=== PATIENT | female | born 1990 | race Caucasian/White ===

== ENCOUNTER 2017-03-29 23:59 | Emergency (ER) | payer BC ==
--- NOTE | ~2017-03-29 | ER ---
PATIENT'S NAME: JOY PORTER [facility] AGE: 27 Y [address] ROOM: [place] [id number] LOCATION: [facility] ADMIT DATE: 03/29/2017 ER/Outpatient Report DISCHARGE DATE: 03/30/2017 FAMILY PHYSICIAN: PHYSICIAN, NO ATTENDING PHYSICIAN: Veto Lockett Admission date and time documented on the medical record. I saw the patient at 0015 hours. CHIEF COMPLAINT: Syncopal episode with neck pain, left arm numbness, confusion. HISTORY OF PRESENT ILLNESS: This patient is a 27-year-old female with known history of neurocardiogenic syncope. The patient was camping, ended up having a syncopal episode. She did not fall. She was lowered to the ground. Her unresponsiveness was brief. Brought to the emergency room for evaluation. The patient complains of some neck discomfort. No chest pain. No real shortness of breath. Does have some nausea, but no vomiting or diarrhea. She was not incontinent of stool or urine. No seizure activity. No recent coughs, colds, flus, fever, chills, or sweats. The patient does have a history of sick sinus syndrome and has a demand pacemaker. She is not pacing here in the emergency department. Her blood pressure was stable. She was awake, alert, responsive. No recent coughs, colds, flus, fever, chills, or sweats. No fall or trauma. No headache, eyes, ears, nose, throat, neck, or spine pain. No chest pain, shortness of breath. No abdominal pain, nausea, vomiting, or diarrhea. No urinary complaints. No joint or muscle swelling, redness, or pain other than some numbness in her left shoulder and arm. No skin eruptions or rash. No psych issues or endocrine problems. HOME MEDICATIONS: See attached medication list. ALLERGIES: AMOXICILLIN, TRAMADOL. SOCIAL HISTORY: The patient smokes a pack of cigarettes per day, nondrinker. SIGNIFICANT PAST MEDICAL HISTORY: Neurocardiogenic syncope, sick sinus syndrome, tobacco abuse. OPERATIONS: Pacemaker insertion. PATIENT'S NAME: JOY PORTER [facility] AGE: 27 Y [address] ROOM: [place] [id number] LOCATION: [facility] ADMIT DATE: 03/29/2017 ER/Outpatient Report DISCHARGE DATE: 03/30/2017 FAMILY PHYSICIAN: PHYSICIAN, NO ATTENDING PHYSICIAN: Veto Lockett REVIEW OF SYSTEMS: All systems reviewed by me are negative with the exception of those discussed in the history of present illness. PHYSICAL EXAMINATION: VITAL SIGNS: Temperature 97 tympanic, pulse 91 and regular, respirations 14, blood pressure 117/72, O2 saturation on room air is 98%. [place] Coma Scale is 15. HEAD: Normocephalic. No abrasion, contusion, laceration, swelling of scalp or face. EYES: Extraocular muscles intact. PERRL. EARS, NOSE, THROAT: Clear. Mucous membranes moist. Teeth and jaw intact. NECK: No nuchal rigidity. No thyromegaly or cervical adenopathy. Range of motion, little tenderness over the trapezius muscle. No marked spasm. No carotid bruits. LUNGS: Clear. HEART: Regular. Pulses are palpable. The patient is not pacing at this time. No chest wall or ribcage pain to palpation. ABDOMEN: Soft, nondistended, nontender. Good bowel tones. No organomegaly or abnormal mass palpable. EXTREMITIES: Without peripheral edema, cyanosis, or deformity. NEUROVASCULAR: Intact. SKIN: Clear. No skin eruptions or rash. LABORATORY DATA AND X-RAYS: Chest x-ray showed no acute infiltrate or changes. We will review x-ray with radiologist. EKG showed sinus rhythm. No acute ST elevation, ischemic change, or arrhythmia. Laboratory: White count is 10,600, 57 segs, 30 lymphs, 7 monos, 5 eos, 1 baso, hemoglobin is 12.8, hematocrit 35.2, platelet count is 275,000. PTT was 26, pro-time was 10.9 with an INR 1.04. Gyzgl-vh-irip cardiac enzymes were normal. CMS was normal except for a slight low potassium of 3.5, low anion gap of 9.5, low calcium 7.9, magnesium was 2.0. Serum quantitative HCG was normal, less than 1.0. CT scan of the head showed no acute hemorrhage, midline shift, mass effect, or skull fracture. CT scan was read by Radiology, see dictated transcribed report. IMPRESSION: 1. Syncopal episode secondary to neurocardiogenic syncope. 2. Tobacco abuse. 3. Past history of sick sinus syndrome with pacemaker insertion. PATIENT'S NAME: JOY PORTER [facility] AGE: 27 Y [address] ROOM: [place] [address] LOCATION: ED ADMIT DATE: 03/29/2017 ER/Outpatient Report DISCHARGE DATE: 03/30/2017 FAMILY PHYSICIAN: , NO ATTENDING PHYSICIAN: Veto Lockett PLAN: The patient dismissed home. Observation. Activity as tolerated. Continue present home medications and care. Aleve 2 orally 2 times a day with food. Heat, ice, or combination to sore areas intermittently as needed. Follow up with personal physician this coming week. Discussion ensued with the patient concerning my findings and recommendations, she understands. MD MAYRA COWART/modl /[id number] d: 04/01/171 t: 04/01/17 1811, OUTPATIENT REPORT
[2017-03-30 00:38] LABS: BASOPHIL # 0.1 K/uL (0.0-0.2); BASOPHIL % 0.5 %; EOSINOPHIL # 0.5 K/uL (0.0-0.5); EOSINOPHIL % 4.6 %; HEMATOCRIT 35.2 % (33.0-46.0); HEMOGLOBIN 12.8 g/dL (11.0-15.0); IMMATURE GRANULOCYTE # 0.1 K/uL (0.0-0.3); IMMATURE GRANULOCYTE % 0.6 %; LYMPHOCYTE # 3.1 K/uL (0.8-4.0); LYMPHOCYTE % 29.5 %; MCH 32.3 pg (27.0-34.0); MCHC 36.4 gm/dL (32.0-36.5); MCV 88.9 fl (83.0-98.0); MONOCYTE # 0.8 K/uL (0.0-1.0); MONOCYTE % 7.4 %; MPV 8.8 fl (9.4-12.4); NEUTROPHIL # (ANC) 6.1 K/uL (1.8-7.8); NEUTROPHIL % 57.4 %; NRBC % 0 /100WBC (0-0.00); PLATELET COUNT 275 K/uL (150-450); RBC 3.96 M/uL (3.50-5.00); RDW-CV 11.6 % (11.9-14.6); WBC 10.6 K/uL (4.0-11.0)
[2017-03-30 00:48] LABS: INR - (THERAPEUTIC) 1.04 (0.92-1.07); PROTIME 10.9 SECONDS (9.8-11.4); PTT 26 SECONDS (25-32)
[2017-03-30 00:58] LABS: ALBUMIN 3.6 gm/dL (3.5-5.0); ALT 23 IU/L (12-78); ANION GAP 9.5 (10.0-19.0); AST 19 IU/L (10-40); BLOOD UREA NITROGEN 11 mg/dL (6-24); CALCIUM 7.9 mg/dL (8.5-10.5); CHLORIDE 109 mMol/L (96-110); CO2 26 mMol/L (22-32); CPK 198 IU/L (21-215); CREATININE 0.8 mg/dL (0.5-1.1); ESTIMATED GFR (MDRD EQUATION) > 60; POTASSIUM 3.5 mMol/L (3.7-5.1); SODIUM 141 mMol/L (135-145); TOTAL BILIRUBIN 0.3 mg/dL (0.0-1.5); TOTAL PROTEIN 6.7 g/dL (6.0-8.4)
[2017-03-30 01:09] LABS: ALK PHOS 54 IU/L (33-138)
== END 2017-03-30 02:02 | disposition disaster alternative care site (69) ==
LOC: GMED 23:59
PROVIDERS: Emergency Medicine
DX: R55 Syncope and collapse (principal); F17.210 Nicotine dependence, cigarettes, uncomplicated; I49.5 Sick sinus syndrome; Z88.1 Allergy status to other antibiotic agents; Z88.5 Allergy status to narcotic agent; Z95.0 Presence of cardiac pacemaker